=== PATIENT | male | born 2000 | race Caucasian/White ===

== ENCOUNTER 2024-09-11 11:19 | Emergency (ER) | payer OTHER, SELFPAY ==
[2024-09-11 11:32] VITALS: BP 151/61; PULSE 77; RESP 19; TEMP 36.9; O2SAT 99; BMI 26.9
--- NOTE | 2024-09-11 11:36 | PD.EDANIML ---
ED Animal Bite RME/HPI General Chief Complaint: Animal Bite Stated Complaint: BIT BY DOG'S LEFT LEG TODAY Time Seen by Provider: 09/11/24 11:22 Arrival date/time: 09/11/24 11:19 24-year-old male presents to the emergency department today stating he is in the and was on a run patient reports that he was running by a house and 2 dogs ran out of the house and bit him. Patient reports no fever nausea or vomiting patient ports no numbness or tingling patient says he was sent here by his chief for further evaluation Limitations: no limitations Related Data Previous Rx's ?Medication ?Instructions ?Recorded amoxicillin 875 mg-potassium 1 tab PO BID 5 days #10 tabs 09/11/24 clavulanate 125 mg tablet bacitracin 500 unit/gram topical 1 applic topical TID 7 days #28.4 09/11/24 ointment grams ibuprofen 800 mg tablet 800 mg PO TID PRN pain #30 tabs 09/11/24 Allergies Allergy/AdvReac Type Severity Reaction Status Date / Time No Known Allergies Allergy Verified 09/11/24 11:21 Review of Systems Review of Systems Systems Reviewed: All systems reviewed, normal except as documented Constitutional Constitutional: Reports system reviewed and no additional complaints, except as documented, Denies fever(s) and Denies headache(s) Eyes Eyes: Reports system reviewed and no additional complaints, except as documented and Denies blurry vision ENT Ears, Nose, Mouth, and Throat: Reports system reviewed and no additional complaints, except as documented, Denies headache(s), Denies nasal congestion and Denies nasal discharge Cardiovascular Cardiovascular: Reports system reviewed and no additional complaints, except as documented, Denies chest pain and Denies dyspnea Respiratory Respiratory: Reports system reviewed and no additional complaints, except as documented, Denies chest congestion, Denies cough and Denies dyspnea Gastrointestinal Gastrointestinal: Reports system reviewed and no additional complaints, except as documented and Denies abdominal pain Integumentary/Breasts Skin/Breast: Reports system reviewed and no additional complaints, except as documented, Denies rash and Reports wounds (Dog bite left leg) Neurologic Neurologic: Reports system reviewed and no additional complaints, except as documented, Reports as per HPI and Denies headache(s) Past Medical History Social History SMOKING STATUS: Never smoker ED Exam General Limitations: Present no limitations General appearance: Present alert and in no apparent distress Head Head exam: Present atraumatic Eye Eye exam: Present normal appearance, PERRL and EOMI ENT ENT exam: Present normal exam, normal oropharynx and mucous membranes moist Neck Neck exam: Present normal inspection, full ROM and trachea midline Chest Chest inspection: Present normal inspection and symmetric chest wall rise Respiratory Respiratory exam: Present normal lung sounds bilaterally Cardiovascular Cardiovascular exam: Present regular rate, normal rhythm and normal heart sounds Abdominal Exam Abdominal exam: Present soft and normal bowel sounds Extremities Exam Extremities exam: Present normal inspection and full ROM Back Exam Back exam: Present normal inspection and full ROM Neurological Exam Neurological exam: Present alert, oriented X3 and CN II-XII intact Psychiatric Psychiatric exam: Present normal affect and normal mood Skin Skin exam: Present warm, dry and other (Dog bite left leg) Course Quality Measures none Orders Category Date Time Status Wound Care NOW Care 09/11/24 11:36 Active Amoxicillin/Pot Clav 875 [Augmentin 875] Med 09/11/24 11:36 Discontinued 1 tab PO X1 ONE Tet,Diphth,Pertuss(Acell)-Tdap [Boostrix Vacc] Med 09/11/24 11:36 Discontinued 0.5 ml IMI .ONCE ONE Vital Signs Vital signs: Vital Signs Temperature 98.4 F 09/11/24 11:32 Pulse Rate 77 09/11/24 11:32 Respiratory Rate 19 09/11/24 11:32 Blood Pressure 151/61 H 09/11/24 11:32 Pulse Oximetry (%) 99 09/11/24 11:32 Oxygen Delivery Method Room Air 09/11/24 11:32 O2 saturation 99% room air within normal limits Animal Bite MDM Narrative MDM Narrative:: 24-year-old male presents to the emergency department today stating he is in the and was on a run patient reports that he was running by a house and 2 dogs ran out of the house and bit him. Patient reports no fever nausea or vomiting patient ports no numbness or tingling patient says he was sent here by his chief for further evaluation On exam patient has 2 superficial dog bites to the left leg Tdap updated patient given first dose of antibiotics wound is cleansed Patient discharged home in no distress to follow-up with primary care doctor in the next 24 to 48 hours and for any worsening symptoms to return to the ER immediately Patient data External records reviewed:: [facility] previous records Clinical information provided by:: patient Social determinants that could affect healthcare access:: none Patient has the following chronic illnesses:: None How is presenting disease/condition affected by chronic disease/condition?: no chronic disease Evaluation data The following diagnostics were reviewed and interpreted by me:: other (specify) (N/A) Lab and/or radiology exams considered but not ordered:: Consider not ordered Interpretation Summary: N/A Medications / Prescriptions Medications or Prescriptions considered but not ordered:: Given Medication administrations:: Medication Administration History Discontinued Medications Amoxicillin/Clavulanate Potassium (Amoxicillin/Pot Clav 875 Tablet) 1 tab PO X1 ONE Stop: 09/11/24 11:37 Last Admin: 09/11/24 12:23 Dose: 1 tab Documented By: BENJAMÍN Diphtheria/Tetanus/Acell Pertussis (Diphth,Pertuss(Acell),Tet Vac 0.5 Ml Vial) 0.5 ml IMi .ONCE ONE Stop: 09/11/24 11:37 Last Admin: 09/11/24 12:24 Dose: 0.5 ml Documented By: BENJAMÍN Given Consultations Consultation(s) initiated? (list below): No Diagnosis Differential diagnosis animal bite: bite by animal, dog bite and rabies contact Most likely diagnosis given after review of the tests above:: Dog bite Admission Indicated Admission indicated?: not indicated Admission Request Was there a request for admission?: No Disposition Plan Disposition Plan: Discharge Discharge Attestation Discharge Attestation: The patient and all family members were given an opportunity to ask questions and understood the discharge instructions. Discharge instructions specifically effects, indications for sooner follow up or return to the emergency department, and the expected course of current diagnosis. Patient condition: Stable Discharge Plan Plan Patient Disposition: HOME (Self Care) Disposition Comment: Stable Prescriptions/Referrals Prescriptions/Med Rec: New ibuprofen 800 mg tablet 800 mg PO TID PRN (Reason: pain) Qty: 30 0RF amoxicillin-pot clavulanate 875-125 mg tablet 1 tab PO BID 5 Days Qty: 10 0RF bacitracin 500 unit/gram ointment 1 applic topical TID 7 Days Qty: 28.4 0RF Problem List Clinical Impression: Dog bite Patient/Caregiver Discharge Instructions Education Materials: ED Dog Bite Additional Instructions: Please follow up with your primary care doctor in the next 24-48hrs for any worsening symptoms return here immediately Print Language: Iranian Stand Alone Forms: Veda Rg Info., Work/School Release, Patient Portal Info Letter Vaccines Vaccines Given During Stay: TDaP PA/SCHOOL JANITOR Supervising Physician PA/SCHOOL JANITOR Supervising Physician: Dr dean
[2024-09-11] MEDS: AMOXICILLIN/POT CLAV 875 TABLET 1 TAB PO (12:23)
[2024-09-11] MEDS: DIPHTH,PERTUSS(ACELL),TET VAC 0.5 ML VIAL IMi (12:24)
== END 2024-09-11 12:57 | disposition home or self-care (01) ==
PROVIDERS: Emergency Provider Emergency Medicine
DX: S80.872A Other superficial bite, left lower leg, initial encounter (principal); W54.0XXA Bitten by dog, initial encounter; Z23 Encounter for immunization
CPT/HCPCS: 90471; 90715; 99282; A9270